=== PATIENT | male | born 1960 | race African-American/Black ===

== ENCOUNTER 2016-07-02 13:18 | Inpatient (IN) | payer OTHER ==
[2016-07-02 16:43] VITALS: BMI 34.2
[2016-07-02] MEDS ORDERED: guaiFENesin/D-METHORPHAN HB 10 ML UNIT-DOSE CUPS PO PRN (17:45)
[2016-07-02] MEDS ORDERED: P-EPHED 60MG/TRIPROLIDI 2.5MG TABLET PO PRN (17:45)
[2016-07-02] MEDS ORDERED: LOPERAMIDE HCL 2 MG CAPSULE PO PRN (17:45)
[2016-07-02] MEDS ORDERED: ACETAMINOPHEN 325 MG TABLET (FP) PO PRN (17:45)
[2016-07-02] MEDS ORDERED: IBUPROFEN 400 MG TABLET (FP) PO PRN (17:45)
[2016-07-02] MEDS ORDERED: METHADONE HCL 10 MG TABLET (FOR DETOX USE ONLY) PO ONE ×2 (17:45→23:00)
[2016-07-02] MEDS ORDERED: MAG HYDROX/AL HYDROX/SIMETH 30 ML UNIT-DOSE CUP PO PRN (17:45)
--- NOTE | 2016-07-02 17:45 | HP ---
COWS - Scale Resting Pulse: 0= SD 80 or Below Sweatin= Chills/Flushing Restless Observation: 3= Extraneous Movement Pupil Size: 0= Normal to Room Light Bone or Joint Aches: 2= Severe Diffuse Aches Runny Nose/ Eye Tearin= Runny Nose/Eyes GI Upset > 30mins: 2= Nausea/Diarrhea Tremor Observation: 2= Slight Tremor Visible Yawning Observation: 0= None Anxiety or Irritability: 1=Feels Anxious/Irritable Goose Flesh Skin: 0=Smooth Skin COWS Score: 13 Admission [facility] Chief Complaint: WITHDRAWAL SX Allergies/Adverse Reactions: Allergies Allergy/AdvReac Type Severity Reaction Status Date / Time No Known Allergies Allergy Verified 07/02/16 18:25 History of Present Illness: 56 YEARS OLD MALE WITH LONG HISTORY OF OPIATE DEPENDENCE DENIES MEDICAL ISSUE DENIES DENIES MENTAL ILLNESS IS ADMITTED TO DETOX Exam Limitations: No Limitations - Ebola screening Have you traveled outside of the country in the last 21 days: No Have you had contact with anyone from an Ebola affected area: No Have you been sick,other than usual withdrawal symptoms: No Do you have a fever: No - Review of Systems Constitutional: Chills, Changes in sleep, Weight Stable EENT: reports: No Symptoms Reported Respiratory: reports: No Symptoms reported Cardiac: reports: No Symptoms Reported GI: reports: Nausea, Poor Fluid Intake, Abdominal cramping : reports: No Symptoms Reported Musculoskeletal: reports: Back Pain, Joint Pain, Muscle Pain, Neck Pain Integumentary: reports: No Symptoms Reported Neuro: reports: Tremors Endocrine: reports: No Symptoms Reported Hematology: reports: No Symptoms Reported Psychiatric: reports: Judgement Intact, Mood/Affect Appropiate, Orientated x3 Other Systems: Reviewed and Negative Patient History - Patient Medical History Hx Anemia: No Hx Asthma: No Hx Chronic Obstructive Pulmonary Disease (COPD): No Hx Cancer: No Hx Cardiac Disorders: No Hx Congestive Heart Failure: No Hx Hypertension: No Hx Hypercholesterolemia: No Hx Pacemaker: No HX Cerebrovascular Accident: No Hx Seizures: No Hx Dementia: No Hx Diabetes: No Hx Gastrointestinal Disorders: No Hx Liver Disease: No Hx Genitourinary Disorders: No Hx Sexually Transmitted Disorders: No Hx Renal Disease (ESRD): No Hx Thyroid Disease: No Hx Human Immunodeficiency Virus (HIV): No Hx Hepatitis C: No Hx Depression: No Hx Suicide Attempt: No Hx Bipolar Disorder: No Hx Schizophrenia: No - Patient Surgical History Past Surgical History: Yes Hx Neurologic Surgery: Yes (spinal fusion) Hx Cataract Extraction: No Hx Cardiac Surgery: No Hx Lung Surgery: No Hx Breast Surgery: No Hx Breast Biopsy: No Hx Abdominal Surgery: No Hx Appendectomy: No Hx Cholecystectomy: No Hx Genitourinary Surgery: No Hx Orthopedic Surgery: Yes (LEFT HIP 1993) Anesthesia Reaction: No - PPD History Previous Implant?: Yes Documented Results: Positive w/o proof Implanted On Prior [facility] Admission?: No PPD to be Administered?: No - Smoking Cessation Smoking history: Never smoked Have you smoked in the past 12 months: No Hx Chewing Tobacco Use: No Initiated information on smoking cessation: No - Substance & Tx. History Hx Alcohol Use: No Hx Substance Use: Yes Substance Use Type: Opiates Hx Substance Use Treatment: Yes - Substances Abused Heroin Route: Inhalation Frequency: Daily Amount used: 10 BAGS Age of first use: 26 Date of Last Use: 07/02/16 Family Disease History - Family Disease History Family Disease History: Diabetes: Mother (), Heart Disease: Father ( ) Other Family History: ONLY CHILD Admission Physical Exam BHS - Vital Signs Vital Signs: Vital Signs - 24 hr 07/02/16 16:41 Temperature 97 F L Pulse Rate 57 L Respiratory 19 Rate Blood Pressure 116/74 - Physical General Appearance: Yes: Appropriately Dressed, Mild Distress, Obese, Tremorous , Irritable, Sweating, Anxious HEENTM: Yes: Hearing grossly Normal, Normal ENT Inspection, Normocephalic, Normal Voice Respiratory: Yes: Chest Non-Tender, Lungs Clear, Normal Breath Sounds, No Respiratory Distress, No Accessory Muscle Use Neck: Yes: Supple, Trachea in good position Breast: Yes: Breasts Symetrical Cardiology: Yes: Regular Rhythm, S1, S2, Bradycardia Abdominal: Yes: Non Tender, Soft Genitourinary: Yes: Within Normal Limits Back: Yes: Within Normal Limits Musculoskeletal: Yes: full range of Motion, Gait Steady, Muscle Pain (LEFT KNEE) Extremities: Yes: Normal Range of Motion, Non-Tender, Tremors, Swelling (LEFT KNEE) Neurological: Yes: Fully Oriented, Alert, Motor Strength 5/5, Normal Mood/Affect , Normal Response Integumentary: Yes: Warm Lymphatic: Yes: Within Normal Limits - Diagnostic (1) Opioid dependence with withdrawal Current Visit: Yes Status: Acute (2) Positive PPD, treated Current Visit: Yes Status: Resolved (3) Left knee pain Current Visit: Yes Status: Chronic Qualifiers: Chronicity: chronic Qualified Code(s): M25.562 - Pain in left knee Cleared for Admission [facility] - Detox or Rehab [facility] Level of Care: Medically Managed Detox Regimen/Protocol: Methadone [facility] Breath Alcohol Content Breath Alcohol Content: 0 Urine Drug Screen - Results Drug Screen Negative: No Urine Drug Screen Results: OPI-Opiates
[2016-07-02] MEDS: diazePAM 5 MG TABLET PO PRN (19:45)
[2016-07-02] MEDS: diphenhydrAMINE HCL 50 MG CAPSULE PO PRN (22:57)
[2016-07-02] MEDS: THIAMINE HCL 100 MG TABLET (FP) PO SCH (22:57)
[2016-07-03 01:07] LABS: URINE APPEARANCE CLEAR; URINE BILIRUBIN NEGATIVE (NEGATIVE); URINE BLOOD NEGATIVE (NEGATIVE); URINE COLOR YELLOW; URINE GLUCOSE (UA) NEGATIVE (NEGATIVE); URINE KETONE NEGATIVE (NEGATIVE); URINE LEUK ESTERASE NEGATIVE (NEGATIVE); URINE NITRITE NEGATIVE (NEGATIVE); URINE PROTEIN NEGATIVE (NEGATIVE); URINE UROBILINOGEN NEGATIVE E.U./dl (0.2-1.0)
[2016-07-03 09:48] LABS: MCH 27.7 pg (25.7-33.7); MCHC 32.4 g/dl (32.0-35.9); MEAN CELL VOLUME 85.6 fl (80-96); MEAN PLT VOLUME 11.2 fl (7.5-11.1); PLATELET COUNT 155 K/MM3 (134-434); RDW 13.6 % (11.9-15.9); WHITE BLOOD COUNT 4.5 K/mm3 (4.0-10.0)
[2016-07-03] MEDS ORDERED: METHADONE HCL 10 MG TABLET (FOR DETOX USE ONLY) PO ONE (10:00)
[2016-07-03 10:09] LABS: ALBUMIN 3.7 g/dl (3.4-5.0); ALK PHOS 63 U/L (45-117); ANION GAP 9 (8-16); BILIRUBIN,TOTAL 0.4 mg/dL (0.2-1.0); CALCIUM 8.5 mg/dL (8.5-10.1); CO2 27 mmol/L (21-32); COCKROFT - GAULT 133.87; CREATININE 0.9 mg/dL (0.7-1.3); GLUCOSE,RANDOM 105 mg/dL (74-106); SGOT/AST 22 U/L (15-37); SGPT/ALT 22 U/L (12-78); TOT PROT 7.3 g/dl (6.4-8.2)
[2016-07-03] MEDS: PRENATAL VITAMINS W/ FOLIC ACID TABLET (FP) PO SCH (10:31)
[2016-07-03] MEDS: diazePAM 5 MG TABLET PO PRN (10:31)
--- NOTE | 2016-07-03 10:32 | PN ---
BHS COWS - Scale Resting Pulse: 0= [place] 80 or Below Sweatin= Chills/Flushing Restless Observation: 1= Difficult to Sit Still Pupil Size: 1= Pupils >than Normal Bone or Joint Aches: 2= Severe Diffuse Aches Runny Nose/ Eye Tearin= Nasal Congestion GI Upset > 30mins: 1= Stomach Cramp Tremor Observation of Outstretched Hands: 1= Tremor Turner, Not Seen Yawning Observation: 0= None Anxiety or Irritability: 2=Irritable/Anxious Goose Flesh Skin: 0=Smooth Skin COWS Score: 10 BHS Progress Note (SOAP) Subjective: interrupted sleep,sweats, aches Objective: 07/03/16 10:30 Vital Signs Temperature 97.9 F 07/03/16 09:59 Pulse Rate 50 L 07/03/16 09:59 Respiratory Rate 18 07/03/16 09:59 Blood Pressure 157/94 07/03/16 09:59 O2 Sat by Pulse Oximetry (%) Vital Signs Temperature 97.9 F 07/03/16 09:59 Pulse Rate 50 L 07/03/16 09:59 Respiratory Rate 18 07/03/16 09:59 Blood Pressure 157/94 07/03/16 09:59 O2 Sat by Pulse Oximetry (%) Laboratory Tests 07/02/16 07/03/16 07/03/16 23:02 06:00 06:00 WBC 4.5 RBC 4.16 Hgb 11.5 L Hct 35.6 MCV 85.6 MCHC 32.4 RDW 13.6 Plt Count 155 MPV 11.2 H Sodium 141 Potassium 4.4 Chloride 105 Carbon Dioxide 27 Anion Gap 9 BUN 11 Creatinine 0.9 Creat Clearance w eGFR > 60 Random Glucose 105 Calcium 8.5 Total Bilirubin 0.4 AST 22 ALT 22 Alkaline Phosphatase 63 Total Protein 7.3 Albumin 3.7 Urine Color Yellow Urine Appearance Clear Urine pH 5.0 Ur Specific Mccarley 1.014 Urine Protein Negative Urine Glucose (UA) Negative Urine Ketones Negative Urine Blood Negative Urine Nitrite Negative Urine Bilirubin Negative Urine Urobilinogen Negative Ur Leukocyte Esterase Negative pt aox3 in nad ambulating Assessment: 07/03/16 10:30 withdrawal sx's Plan: cont. detox increase fluids motrin prn
--- NOTE | 2016-07-03 11:45 | EKG ---
Test Reason : Blood Pressure : / mmHG Vent. Rate : 054 BPM Atrial Rate : 054 BPM P-R Int : 164 ms QRS Dur : 090 ms QT Int : 456 ms P-R-T Axes : 045 024 021 degrees QTc Int : 432 ms SINUS BRADYCARDIA OTHERWISE NORMAL ECG NO PREVIOUS ECGS AVAILABLE Confirmed by SANJIV MCDANIEL MD ([id number]) on 07/03/2016 11:45:09 AM Referred By: Confirmed By:SANJIV MCDANIEL MD
[2016-07-03] MEDS: diphenhydrAMINE HCL 50 MG CAPSULE PO PRN (22:30)
[2016-07-03] MEDS: THIAMINE HCL 100 MG TABLET (FP) PO SCH (22:30)
[2016-07-04] MEDS ORDERED: METHADONE HCL 5 MG TABLET (FOR DETOX USE ONLY) PO ONE (10:00)
[2016-07-04] MEDS: PRENATAL VITAMINS W/ FOLIC ACID TABLET (FP) PO SCH (10:10)
--- NOTE | 2016-07-04 12:40 | PN ---
S COWS - Scale Resting Pulse: 0= [place] 80 or Below Sweatin=Flushed/Facial Moisture Restless Observation: 1= Difficult to Sit Still Pupil Size: 0= Normal to Room Light Bone or Joint Aches: 2= Severe Diffuse Aches Runny Nose/ Eye Tearin= Nasal Congestion GI Upset > 30mins: 0= None Tremor Observation of Outstretched Hands: 2= Slight Tremor Visible Yawning Observation: 1= 1-2x During Session Anxiety or Irritability: 2=Irritable/Anxious Goose Flesh Skin: 3=Piloerection COWS Score: 14 S Progress Note (SOAP) Subjective: Interrupted sleep, Sweating. Objective: PT. A & O X 3. 07/04/16 12:38 Vital Signs Temperature 97.9 F 07/04/16 11:15 Pulse Rate 57 L 07/04/16 11:15 Respiratory Rate 18 07/04/16 11:15 Blood Pressure 139/90 07/04/16 11:15 O2 Sat by Pulse Oximetry (%) Laboratory Last Values WBC 4.5 K/mm3 (4.0-10.0) 07/03/16 06:00 RBC 4.16 M/mm3 (4.00-5.60) 07/03/16 06:00 Hgb 11.5 GM/dL (11.7-16.9) L 07/03/16 06:00 Hct 35.6 % (35.4-49) 07/03/16 06:00 MCV 85.6 fl (80-96) 07/03/16 06:00 MCHC 32.4 g/dl (32.0-35.9) 07/03/16 06:00 RDW 13.6 % (11.9-15.9) 07/03/16 06:00 Plt Count 155 K/MM3 (134-434) 07/03/16 06:00 MPV 11.2 fl (7.5-11.1) H 07/03/16 06:00 Sodium 141 mmol/L (136-145) 07/03/16 06:00 Potassium 4.4 mmol/L (3.5-5.1) 07/03/16 06:00 Chloride 105 mmol/L (98-107) 07/03/16 06:00 Carbon Dioxide 27 mmol/L (21-32) 07/03/16 06:00 Anion Gap 9 (8-16) 07/03/16 06:00 BUN 11 mg/dL (7-18) 07/03/16 06:00 Creatinine 0.9 mg/dL (0.7-1.3) 07/03/16 06:00 Creat Clearance w eGFR > 60 (>60) 07/03/16 06:00 Random Glucose 105 mg/dL (74-106) 07/03/16 06:00 Calcium 8.5 mg/dL (8.5-10.1) 07/03/16 06:00 Total Bilirubin 0.4 mg/dL (0.2-1.0) 07/03/16 06:00 AST 22 U/L (15-37) 07/03/16 06:00 ALT 22 U/L (12-78) 07/03/16 06:00 Alkaline Phosphatase 63 U/L (45-117) 07/03/16 06:00 Total Protein 7.3 g/dl (6.4-8.2) 07/03/16 06:00 Albumin 3.7 g/dl (3.4-5.0) 07/03/16 06:00 Urine Color Yellow 07/02/16 23:02 Urine Appearance Clear 07/02/16 23:02 Urine pH 5.0 (5.0-8.0) 07/02/16 23:02 Ur Specific Timblin 1.014 (1.001-1.035) 07/02/16 23:02 Urine Protein Negative (NEGATIVE) 07/02/16 23:02 Urine Glucose (UA) Negative (NEGATIVE) 07/02/16 23:02 Urine Ketones Negative (NEGATIVE) 07/02/16 23:02 Urine Blood Negative (NEGATIVE) 07/02/16 23:02 Urine Nitrite Negative (NEGATIVE) 07/02/16 23:02 Urine Bilirubin Negative (NEGATIVE) 07/02/16 23:02 Urine Urobilinogen Negative E.U./dl (0.2-1.0) 07/02/16 23:02 Ur Leukocyte Esterase Negative (NEGATIVE) 07/02/16 23:02 RPR Titer Nonreactive (NONREACTIVE) 07/03/16 06:00 LABS NOTED. 07/04/16 12:39 Assessment: 07/04/16 12:39 WITHDRAWAL SYMPTOMS. Plan: CONTINUE DETOX. ADVISED PATIENT TO FOLLOW-UP WITH [facility] [employer] [facility] / REHAB MEDICAL PROVIDER AFTER DISCHARGE FROM DETOX FOR ABNORMAL ADMISSION LAB VALUES.
[2016-07-04] MEDS: THIAMINE HCL 100 MG TABLET (FP) PO SCH (22:11)
[2016-07-04] MEDS: diazePAM 5 MG TABLET PO PRN (22:11)
[2016-07-04] MEDS: diphenhydrAMINE HCL 50 MG CAPSULE PO PRN (22:12)
[2016-07-05] MEDS ORDERED: METHADONE HCL 5 MG TABLET (FOR DETOX USE ONLY) PO ONE (10:00)
[2016-07-05] MEDS: PRENATAL VITAMINS W/ FOLIC ACID TABLET (FP) PO SCH (10:21)
[2016-07-05] MEDS: diazePAM 5 MG TABLET PO PRN (10:22)
--- NOTE | 2016-07-05 14:49 | PN ---
BHS Progress Note (SOAP) Subjective: ALERT,IRRITABLE,ANXIOUS,INTERRUPTED SLEEP,PAIN IN THE BODY AND BACK Objective: 07/05/16 14:48 Vital Signs Temperature 97.9 F 07/05/16 10:28 Pulse Rate 52 L 07/05/16 10:28 Respiratory Rate 18 07/05/16 10:28 Blood Pressure 152/70 07/05/16 10:28 O2 Sat by Pulse Oximetry (%) Assessment: 07/05/16 14:48 WITHDRAWAL SYMPTOM Plan: CONTINUE DETOX
[2016-07-05] MEDS: THIAMINE HCL 100 MG TABLET (FP) PO SCH (22:15)
[2016-07-05] MEDS: diphenhydrAMINE HCL 50 MG CAPSULE PO PRN (22:15)
[2016-07-06] MEDS ORDERED: METHADONE HCL 10 MG TABLET (FOR DETOX USE ONLY) PO ONE (10:00)
[2016-07-06] MEDS: PRENATAL VITAMINS W/ FOLIC ACID TABLET (FP) PO SCH (10:23)
--- NOTE | 2016-07-06 14:02 | PN ---
S Progress Note (SOAP) Subjective: ALERT,IRRITABLE,ANXIOUS,INTERRUPTED SLEEP, Objective: 07/06/16 14:01 Vital Signs Temperature 97.2 F L 07/06/16 10:50 Pulse Rate 61 07/06/16 10:50 Respiratory Rate 18 07/06/16 10:50 Blood Pressure 134/74 07/06/16 10:50 O2 Sat by Pulse Oximetry (%) Assessment: 07/06/16 14:01 WITHDRAWAL SYMPTOM Plan: CONTINUE DETOX,DISCHARGE IN AM
[2016-07-06] MEDS: diphenhydrAMINE HCL 50 MG CAPSULE PO PRN (22:24)
[2016-07-06] MEDS: THIAMINE HCL 100 MG TABLET (FP) PO SCH (22:24)
[2016-07-07] MEDS ORDERED: METHADONE HCL 5 MG TABLET (FOR DETOX USE ONLY) PO ONE (06:00)
[2016-07-07] MEDS: PRENATAL VITAMINS W/ FOLIC ACID TABLET (FP) PO SCH (10:19)
--- NOTE | 2016-07-07 10:52 | DS ---
[facility] Detox Discharge Summary Admission Date: 07/02/16 Discharge Date: 07/07/16 - History Present History: Opioid Dependence - Physical Exam Results Vital Signs: Vital Signs Temperature 97.9 F 07/07/16 06:00 Pulse Rate 52 L 07/07/16 06:00 Respiratory Rate 18 07/07/16 06:00 Blood Pressure 102/60 07/07/16 06:00 O2 Sat by Pulse Oximetry (%) - Treatment Hospital Course: Detox Protocol Followed, Detoxed Safely, Responded well, Discharged Condition Good - Medication Discharge Medications: Ambulatory Orders NK [No Known Home Medication] 07/02/16 - Diagnosis (1) Opioid dependence with withdrawal Current Visit: Yes Status: Chronic (2) Left knee pain Current Visit: Yes Status: Chronic Qualifiers: Chronicity: chronic Qualified Code(s): M25.562 - Pain in left knee - AMA Did Patient Leave Against Medical Advice: No
[2016-07-07 11:37] VITALS: BP 130/75; PULSE 67; TEMP 98.6
== END 2016-07-07 11:15 | disposition home or self-care (01) | DRG 773 ==
LOC: YASAS 13:18 → Y6N 18:52
PROVIDERS: ADMIT Internal Medicine Addiction Medicine; ATTEND Internal Medicine Addiction Medicine
PROC: HZ2ZZZZ Detoxification Services for Substance Abuse Treatment (ICD-10-PCS; principal; 2016-07-02)
DX: F11.23 Opioid dependence with withdrawal (principal); M25.562 Pain in left knee; Z98.1 Arthrodesis status; E66.9 Obesity, unspecified; Z68.34 Body mass index [BMI] 34.0-34.9, adult; R00.1 Bradycardia, unspecified; R76.11 Nonspecific reaction to tuberculin skin test without active tuberculosis
CPT/HCPCS: 36415; 71020-TC; 80053; 81003; 85027; 86593; 93005; 93010